=== PATIENT | male | born 1955 | race Caucasian/White ===

== ENCOUNTER → 2018-10-02 | Outpatient (REF) | payer OTHER ==
[~2018-10-02] MED LIST: ASPIRIN ADULT L81 M2 PO; CIPROFLOXACN250 MG PO; CIPROFLOXACN500 MG PO; DILAUDID 2MG2 MG/TA1 PO; DILAUDID2 MG OR; DILAUDID2 MG PO; FLUARIX QUADRIV1 IN1 IM; FLUARIX QUADRIV1 INJ IM; FLUZONE SPLT1 M1 IM; HYDROCHLOROT25 MG PO; LISINOPRIL10 MG PO; LORTAB 5 OR; METFORMIN500 MG PO; METOPROL TAR25 MG PO; MULTI VIT PO; NEXIUM40 M1 PO; PERCOCET 10/31 COMBO PO; PERCOCET 5/325M1 TAB OR; PERCOCET 5/325M1 TAB PO; PIOGLITAZONE HC15 MG PO; PRILOSEC20 MG OR; ROSUVASTATIN CA10 MG PO; SEPTRA OR; TORADOL OR; WELLBUTRIN SR150 M1 PO; ZOLPIDEM5 M1 PO; [UNRECOGNIZED DRUG - OTHER] OR
[2018-10-02 11:30] VITALS: BP 125/87
== END | disposition home or self-care (01) | DRG 951 ==
LOC: ORM 10:30 → PO 10:41
PROVIDERS: ATTEND Surgery
DX: Z01.818 Encounter for other preprocedural examination (principal); Z12.11 Encounter for screening for malignant neoplasm of colon; K21.9 Gastro-esophageal reflux disease without esophagitis; N20.0 Calculus of kidney; E11.9 Type 2 diabetes mellitus without complications; I10 Essential (primary) hypertension; Z98.890 Other specified postprocedural states; Z72.89 Other problems related to lifestyle; F17.290 Nicotine dependence, other tobacco product, uncomplicated

== ENCOUNTER 2018-10-07 07:01 | Day surgery (SDC) | payer OTHER ==
[~2018-10-07] VITALS: Ht 170.2 cm; Wt 76.2 kg
[2018-10-07 08:56] VITALS: BP 115/78
== END 2018-10-07 09:14 | disposition home or self-care (01) | DRG 951 ==
LOC: ENDO 07:01 → ORM 09:30 → ENDO 09:30
PROVIDERS: ATTEND Surgery
PROC: 0DJD8ZZ Inspection of Lower Intestinal Tract, Via Natural or Artificial Opening Endoscopic (ICD-10-PCS; principal; 2018-10-07)
PROC: 0DB48ZX Excision of Esophagogastric Junction, Via Natural or Artificial Opening Endoscopic, Diagnostic (ICD-10-PCS; 2018-10-07)
DX: Z12.11 Encounter for screening for malignant neoplasm of colon (principal); K22.70 Barrett's esophagus without dysplasia; K21.9 Gastro-esophageal reflux disease without esophagitis; K44.9 Diaphragmatic hernia without obstruction or gangrene; I10 Essential (primary) hypertension; E78.5 Hyperlipidemia, unspecified; E11.9 Type 2 diabetes mellitus without complications

== ENCOUNTER 2018-11-21 10:07 | Emergency (ER) | payer OTHER ==
[~2018-11-21] VITALS: Ht 167.6 cm; Wt 76.3 kg
[2018-11-21 10:58] LABS: HEMATOCRIT 35.1 % (39.0-50.0); HEMOGLOBIN 11.5 g/dl (14.0-18.0); IMMATURE GRANULOCYTES 0.8 % (0.0-5.0); MEAN CELL VOLUME 98.6 fL CALC (80.0-100.0); MEAN CORPUSCULAR HGB 32.3 pG CALC (26.0-32.0); MEAN CORPUSCULAR HGB CONC 32.8 g/L CALC (32.0-36.0); NEUT# 4.22 thou/uL (1.82-7.42); RED BLOOD COUNT 3.56 mill/uL (4.70-6.10); RED CELL DISTRI WIDTH 15.1 % (11.5-15.5)
[2018-11-21 11:07] LABS: ALBUMIN 4.4 g/dL (3.2-5.0); ALKALINE PHOSPHATASE 56 u/l (38-126); ANION GAP 16 (6-22 (CALC)); BILIRUBIN, TOTAL 0.5 mg/dL (0.0-1.4); BUN 23 mg/dL (8-23); BUN/CREATININE RATIO 18 (12-20 (CALC)); CARBON DIOXIDE 24 mmol/l (22-30); CHLORIDE 102 mmol/l (95-108); CREATININE 1.3 mg/dL (0.7-1.3); GFR 56 ML/MIN (>=60 (CALC)); GFR FOR AFR.AMER. > 60 ML/MIN (>=60 (CALC)); POTASSIUM 4.1 mmol/l (3.5-5.1); SGOT/AST 42 u/l (19-48); SODIUM 138 mmol/l (137-146); TOTAL PROTEIN 7.8 g/dL (6.3-8.2)
[2018-11-21 11:17] LABS: URINE BILIRUBIN - DIPSTICK NEGATIVE (NEGATIVE); URINE BLOOD DIPSTICK MODERATE (NEGATIVE); URINE COLOR YELLOW; URINE GLUCOSE - DIPSTICK NEGATIVE (NEGATIVE); URINE KETONE NEGATIVE (NEGATIVE); URINE LEUK ESTERASE NEGATIVE (NEGATIVE); URINE NITRITE - DIPSTICK NEGATIVE (Negative); URINE PH 5.5 (4.5-8.0); URINE PROTEIN - DIPSTICK NEGATIVE (NEG-TRACE); URINE SPECIFIC GRAVITY 1.025; URINE UROBILINOGEN - DIPSTICK 0.2 E.U./dL (0.2)
[2018-11-21 11:39] LABS: URINE RBC 25-50 RBC/hpf (0-5); URINE SQUAMOUS EPITHELIAL CELL FEW EPI/hpf (0-FEW)
[2018-11-21] MEDS ORDERED: MOTRIN400 MG PO (12:16)
[2018-11-21] MEDS ORDERED: TAMSULOSIN0.4 MG PO (12:16)
[2018-11-21] MEDS ORDERED: TRAMADOL HYDROC50 MG PO (12:16)
[2018-11-21 12:50] VITALS: BP 126/73
== END 2018-11-21 12:59 | disposition home or self-care (01) | DRG 694 ==
LOC: ED 10:07
PROVIDERS: Family Medicine
DX: N13.2 Hydronephrosis with renal and ureteral calculous obstruction (principal); E11.9 Type 2 diabetes mellitus without complications; I10 Essential (primary) hypertension; Z87.442 Personal history of urinary calculi

== ENCOUNTER 2019-10-01 | Emergency (ER) | payer OTHER ==
[~2019-10-01] MED LIST changes: +MOTRIN400 MG PO; +TAMSULOSIN0.4 MG PO; +TRAMADOL HYDROC50 MG PO
[2019-10-01 14:35] LABS: HEMATOCRIT 37.6 % (39.0-50.0); HEMOGLOBIN 12.4 g/dl (14.0-18.0); IMMATURE GRANULOCYTES 0.3 % (0.0-5.0); MEAN CELL VOLUME 98.4 fL CALC (80.0-100.0); MEAN CORPUSCULAR HGB 32.5 pG CALC (26.0-32.0); NEUT# 4.69 thou/uL (1.82-7.42); RED BLOOD COUNT 3.82 mill/uL (4.70-6.10); RED CELL DISTRI WIDTH 14.7 % (11.5-15.5)
[2019-10-01 14:47] LABS: ALBUMIN 4.4 g/dL (3.2-5.0); ALKALINE PHOSPHATASE 60 u/l (38-126); ANION GAP 14 (6-22 (CALC)); BILIRUBIN, TOTAL 0.6 mg/dL (0.0-1.4); BUN 16 mg/dL (8-23); BUN/CREATININE RATIO 13 (12-20 (CALC)); CARBON DIOXIDE 25 mmol/l (22-30); CHLORIDE 103 mmol/l (95-108); CREATININE 1.3 mg/dL (0.7-1.3); GFR 56 ML/MIN (>=60 (CALC)); GFR FOR AFR.AMER. > 60 ML/MIN (>=60 (CALC)); POTASSIUM 4.4 mmol/l (3.5-5.1); SGOT/AST 58 u/l (19-48); SODIUM 137 mmol/l (137-146); TOTAL PROTEIN 8.5 g/dL (6.3-8.2)
[2019-10-01 15:21] LABS: URINE BILIRUBIN - DIPSTICK NEGATIVE (NEGATIVE); URINE BLOOD DIPSTICK NEGATIVE (NEGATIVE); URINE COLOR YELLOW; URINE GLUCOSE - DIPSTICK NEGATIVE (NEGATIVE); URINE KETONE NEGATIVE (NEGATIVE); URINE LEUK ESTERASE NEGATIVE (NEGATIVE); URINE NITRITE - DIPSTICK NEGATIVE (Negative); URINE PH 5.5 (4.5-8.0); URINE PROTEIN - DIPSTICK NEGATIVE (NEG-TRACE); URINE SPECIFIC GRAVITY 1.025; URINE UROBILINOGEN - DIPSTICK 0.2 E.U./dL (0.2)
[2019-10-01] MEDS ORDERED: TRAMADOL HYDROC50 MG PO (16:07)
[2019-10-01] MEDS ORDERED: TAMSULOSIN0.4 MG PO (16:07)
== END 2019-10-01 16:23 | disposition home or self-care (01) | DRG 694 ==
DX: N20.2 Calculus of kidney with calculus of ureter (principal); E11.9 Type 2 diabetes mellitus without complications; I10 Essential (primary) hypertension; F17.290 Nicotine dependence, other tobacco product, uncomplicated; Z87.442 Personal history of urinary calculi; Z79.84 Long term (current) use of oral hypoglycemic drugs

== ENCOUNTER 2020-05-19 17:34 | Emergency (ER) | payer OTHER ==
[~2020-05-19] VITALS: Ht 167.6 cm; Wt 78.0 kg
[2020-05-19 18:43] VITALS: BP 142/81
== END 2020-05-19 18:55 | disposition left against medical advice (07) | DRG 951 ==
LOC: ED 17:34 → LWOBS 18:54
DX: Z53.21 Procedure and treatment not carried out due to patient leaving prior to being seen by health care provider (principal)

== ENCOUNTER 2020-08-16 03:37 | Emergency (ER) | payer OTHER ==
[~2020-08-16] VITALS: Ht 167.6 cm; Wt 84.0 kg
[2020-08-16 04:50] LABS: HEMATOCRIT 39.3 % (39.0-50.0); HEMOGLOBIN 12.7 g/dl (14.0-18.0); IMMATURE GRANULOCYTES 0.2 % (0.0-5.0); MEAN CELL VOLUME 102.3 fL CALC (80.0-100.0); MEAN CORPUSCULAR HGB 33.1 pG CALC (26.0-32.0); MEAN CORPUSCULAR HGB CONC 32.3 g/dL CAL (32.0-36.0); NEUT# 3.78 thou/uL (1.82-7.42); RED BLOOD COUNT 3.84 mill/uL (4.70-6.10); RED CELL DISTRI WIDTH 13.5 % (11.5-15.5); URINE BILIRUBIN - DIPSTICK NEGATIVE (NEGATIVE); URINE BLOOD DIPSTICK NEGATIVE (NEGATIVE); URINE COLOR YELLOW; URINE GLUCOSE - DIPSTICK NEGATIVE (NEGATIVE); URINE KETONE TRACE mg/dL (NEGATIVE); URINE LEUK ESTERASE NEGATIVE (NEGATIVE); URINE NITRITE - DIPSTICK NEGATIVE (Negative); URINE PH 5.5 (4.5-8.0); URINE PROTEIN - DIPSTICK NEGATIVE (NEG-TRACE); URINE SPECIFIC GRAVITY >=1.030; URINE UROBILINOGEN - DIPSTICK 0.2 E.U./dL (0.2)
[2020-08-16 04:59] LABS: ALBUMIN 4.3 g/dL (3.2-5.0); ALKALINE PHOSPHATASE 50 u/l (38-126); ANION GAP 14 (6-22 (CALC)); BILIRUBIN, TOTAL 0.6 mg/dL (0.0-1.4); BUN 16 mg/dL (8-23); BUN/CREATININE RATIO 15 (12-20 (CALC)); CARBON DIOXIDE 24 mmol/l (22-30); CHLORIDE 101 mmol/l (95-108); GFR > 60 ML/MIN (>=60 (CALC)); GFR FOR AFR.AMER. > 60 ML/MIN (>=60 (CALC)); POTASSIUM 4.2 mmol/l (3.5-5.1); SGOT/AST 43 u/l (19-48); SODIUM 135 mmol/l (137-146); TOTAL PROTEIN 8.4 g/dL (6.3-8.2)
[2020-08-16 07:23] VITALS: BP 139/60
== END 2020-08-16 07:32 | disposition home or self-care (01) | DRG 866 ==
LOC: ED 03:37
PROVIDERS: Emergency Medicine
DX: B34.9 Viral infection, unspecified (principal); E11.9 Type 2 diabetes mellitus without complications; I10 Essential (primary) hypertension; Z79.84 Long term (current) use of oral hypoglycemic drugs; Z20.828 Contact with and (suspected) exposure to other viral communicable diseases

== ENCOUNTER 2023-02-07 13:25 | Emergency (ER) | payer OTHER ==
[~2023-02-07] VITALS: Ht 167.6 cm; Wt 72.0 kg
[2023-02-07] MEDS ORDERED: NAPROXEN500 MG PO (15:09)
[2023-02-07 15:13] VITALS: BP 118/70
== END 2023-02-07 15:19 | disposition home or self-care (01) | DRG 563 ==
LOC: ED 13:25
DX: S43.402A Unspecified sprain of left shoulder joint, initial encounter (principal); I10 Essential (primary) hypertension; E11.9 Type 2 diabetes mellitus without complications; W01.0XXA Fall on same level from slipping, tripping and stumbling without subsequent striking against object, initial encounter; Y92.008 Other place in unspecified non-institutional (private) residence as the place of occurrence of the external cause